=== PATIENT | female | born 1945 | race Caucasian/White ===

== ENCOUNTER → 2018-02-07 | Outpatient (CLI) | payer MEDICARE | LOC: M WHC 10:30 | DX: Z51.81 Encounter for therapeutic drug level monitoring (principal); Z79.899 Other long term (current) drug therapy; Z78.0 Asymptomatic menopausal state; M81.0 Age-related osteoporosis without current pathological fracture; M85.852 Other specified disorders of bone density and structure, left thigh; M85.88 Other specified disorders of bone density and structure, other site; M85.851 Other specified disorders of bone density and structure, right thigh | CPT/HCPCS: 77080 ==

== ENCOUNTER → 2018-10-05 | Outpatient (CLI) | payer MEDICARE ==
[~2018-10-05] MED LIST: ARIM1TAB5 PO; BREO1INH PO; CALCCHW4 PO; ESCI20TA PO; KEFL500C17 PO; OMEPPOW18 PO; PRAVASTATIN PO; VICO5TAB17 PO; VITA400T PO; [UNRECOGNIZED DRUG - REMARK] PO
--- NOTE | 2018-10-05 17:02 | REP ---
HISTORY: Tobacco abuse. COMPARISON: None. As per the protocol, only lung window images were sent to the read station for interpretation. In the right lower lobe abutting the major fissure there is a 6 mm sized nodule. In the inferior right upper lobe bordering the right middle lobe there is a pleural based 5 mm sized nodule. There are no other abnormal nodules, masses or opacities. Limited evaluation of the mediastinum and pulmonary santosh show no gross abnormalities. Limited evaluation of the imaged upper abdomen and imaged osseous structures show no gross abnormalities. IMPRESSION: Two right lung nodules as described above. According to the revised [employer] these represent Lung-RADS category III lesions for which 6 month followup is recommended using standard CT technique. Electronically Signed by Jimmy Camacho DO 10/06/2018 03:34 P
== END ==
LOC: M RAD 16:19
PROVIDERS: ATTEND Family Medicine
DX: R91.1 Solitary pulmonary nodule (principal); Z87.891 Personal history of nicotine dependence

== ENCOUNTER → 2019-02-08 | Outpatient (CLI) | payer MEDICARE ==
[~2019-02-08] MED LIST changes: +OMEP-218 PO; +PRAV20TA2 PO
--- NOTE | 2019-02-09 10:07 | DEXA ---
AP SPINE L1 - L4 1.134 -0.5 1.2 LT FEMUR TOTAL 0.946 -0.5 1.2 LT NECK 0.697 -2.5 -0.6 RT FEMUR TOTAL 0.943 -0.5 1.2 RT NECK 0.718 -2.3 -0.4 TOTAL BODY TOTAL OTHER COMMENTS: Normal bone densitometry of the spine. There is low bone density of the hips. The increased density of the spine does not represent a significant change. The decreased density of the left hip does not represent a significant change. The increased density of the right hip does represent a significant change. The density of the spine has decreased 4.1% since the initial exam on 02/13/2014. The spine density has increased 0.4% since the most recent exam on 02/07/2018. The density of the left hip has decreased 7.0% since the initial exam on 02/13/2014. The density of the left hip has decreased 0.8% since the most recent exam on 02/07/2018. The density of the right hip has decreased 2.4% since the initial exam on 02/13/2014. The density of the right hip has increased 3.5% since the most recent exam on 02/07/2018. FOLLOW-UP: Recommendation for the next bone density exam: 2 years. HUBER
== END ==
LOC: M WHC 08:48
PROVIDERS: ATTEND Nurse Practitioner Family
DX: M81.0 Age-related osteoporosis without current pathological fracture (principal); Z85.3 Personal history of malignant neoplasm of breast

== ENCOUNTER → 2020-04-17 | Outpatient (CLI) | payer SELFPAY ==
[~2020-04-17] MED LIST changes: +ATOR1TAB21 PO; +D31000TA2 PO
== END ==
LOC: M LABSMTC 12:04
PROVIDERS: ATTEND Pediatrics
DX: Z20.828 Contact with and (suspected) exposure to other viral communicable diseases (principal)

== ENCOUNTER → 2021-02-20 | Outpatient (CLI) | payer MEDICARE ==
[~2021-02-20] MED LIST changes: -ESCI20TA PO; +ESCI20TA16 PO; +LEXA1TAB2 PO
--- NOTE | 2021-02-20 11:48 | DEXAMM ---
INDICATION: BREAST CANCER ON AREMIDEX. COMPARISON: 02/08/2019 as well as other prior exams. TECHNIQUE: Bone density was measured using dual-energy x-ray absorptiometry (DEXA). FINDINGS: AP SPINE L1-L4 BMD 1.170 g/cm2 Young Adult T-Score -0.2 Age Matched Z-Score 1.6. LT FEMUR, TOTAL BMD 0.956 g/cm2 Young Adult T-Score -0.4 Age Matched Z-Score 1.4. LT NECK BMD 0.744 g/cm2 Young Adult T-Score -2.1 Age Matched Z-Score -0.1. RT FEMUR, TOTAL BMD 1.006 g/cm2 Young Adult T-Score 0.0 Age Matched Z-Score 1.8. RT NECK BMD 0.911 g/cm2 Young Adult T-Score -0.9 Age Matched Z-Score 1.1. IMPRESSION: There is normal bone density of the spine. There is low bone density of the left hip. There is normal bone density of the right hip. The density of the spine has decreased 1.1% since the initial exam on 02/13/2014. The density of the spine increased 3.2% since most recent exam on 02/08/2019. The density of the left hip has decreased 6.0% since initial exam on 02/13/2014. The density of the left hip has increased 1.1% since most recent exam on 02/08/2019. The density of the right hip has increased 4.1% since the initial exam on 02/13/2014. The density of the right hip has increased 6.7% since the most recent exam on 02/08/2019. FOLLOW-UP: Recommendation for the next bone density exam: 2 years. <Electronically signed by Bro Dugan > 02/20/21 [id number]
== END ==
LOC: M WHC 08:55
PROVIDERS: ATTEND Specialist
DX: Z85.3 Personal history of malignant neoplasm of breast (principal); Z79.811 Long term (current) use of aromatase inhibitors

== ENCOUNTER → 2023-02-22 | Outpatient (CLI) | payer MEDICARE ==
[~2023-02-22] MED LIST changes: +AMLO1TAB24 PO; +BREAST PROSTHESIS B XX; -D31000TA2 PO; +MASTECTOMY BRA BILAT XX; +OMEP-173 PO; -OMEP-218 PO; +OMEP40CA5 PO; +VITA100093 PO
== END ==
LOC: M WHC 09:47
PROVIDERS: ATTEND Specialist
DX: Z13.820 Encounter for screening for osteoporosis (principal); Z85.3 Personal history of malignant neoplasm of breast; M85.88 Other specified disorders of bone density and structure, other site

== ENCOUNTER → 2025-02-23 | Outpatient (CLI) | payer MEDICARE ==
[~2025-02-23] MED LIST changes: -PRAV20TA2 PO; +PRAV20TA78 PO
== END ==
LOC: M WHC 14:45
PROVIDERS: ATTEND Specialist
DX: C50.919 Malignant neoplasm of unspecified site of unspecified female breast (principal); M81.0 Age-related osteoporosis without current pathological fracture